=== PATIENT | male | born 1985 | race Caucasian/White ===

== ENCOUNTER 2018-03-27 21:09 | Emergency (ER) | payer OTHER ==
[2018-03-27] MEDS ORDERED: ONDANSETRON 4 MG/2 ML VIAL IVP STA (21:19)
[2018-03-27] MEDS ORDERED: SODIUM CHLORIDE 0.9% 1,000 ML IV STA (21:19)
[2018-03-27] MEDS ORDERED: PANTOPRAZOLE 40 MG VIAL IVP STA (21:28)
[2018-03-27] MEDS ORDERED: FAMOTIDINE 20 MG TABLET PO STA (21:28)
--- NOTE | 2018-03-27 21:38 | ED Physician Documentation ---
History of Present Illness - Stated complaint Stated Complaint: VOMITING - Chief complaint Chief Complaint: Abd Pain - History obtained from History obtained from: Patient - History of Present Illness Timing: Last night Pain level max: 0 Pain level now: 0 Improved by: nothing Worsened by: eating - Additonal information Additional information: 32 year old male with emesis x 2 last night. second episode had blood in it. none since that time. States felt lightheaded today. Still feeling nauseated. no diarrhea. no fevers. No recent travel. no recent abx. Has been around people that have been sick recently with vomiting. Denies any heavy alcohol use. Denies any marijuana use. Nothing makes it better. Worse with eating Review of Systems Ten Systems: 10 systems reviewed and negative Constitutional: denies: Fever, Chills Ears: denies: Ear pain Nose: denies: Rhinorrhea / runny nose, Congestion Respiratory: denies: Cough GI: reports: Nausea, Vomiting. denies: Diarrhea, Hematemesis, Bloody / black stool Skin: denies: Rash Musculoskeletal: denies: Neck pain, Back pain Neurologic: denies: Headache PD PAST MEDICAL HISTORY - Past Medical History Past Medical History: No - Past Surgical History Past Surgical History: No - Present Medications Home Medications: Ambulatory Orders Medication Instructions Recorded Confirmed Esomeprazole Magnesium [Nexium] 20 mg PO DAILY #14 capsule. 03/27/18 Ondansetron Odt [Zofran] 4 mg TL Q6H PRN #10 tablet 03/27/18 - Allergies Allergies/Adverse Reactions: Allergies Allergy/AdvReac Type Severity Reaction Status Date / Time No Known Drug Allergies Allergy Verified 03/27/18 22:05 - Living Situation Living Situation: reports: With family Living Arrangement: reports: At home - Social History Does the pt smoke?: Yes Does the pt drink ETOH?: Yes Does the pt have substance abuse?: No - Family History Family history: reports: Non contributory PD ED PE NORMAL - Vitals Vital signs reviewed: Yes - General General: Alert and oriented X 3, No acute distress, Well developed/nourished - HEENT HEENT: PERRL, Moist mucous membranes - Neck Neck: Supple, no meningeal sign - Cardiac Cardiac: RRR, Strong equal pulses - Respiratory Respiratory: No respiratory distress, Clear bilaterally - Abdomen Abdomen: Soft, Non tender, Non distended - Back Back: No CVA TTP, No spinal TTP - Derm Derm: Warm and dry - Extremities Extremities: No edema - Neuro Neuro: Alert and oriented X 3 - Psych Psych: Normal mood, Normal affect Results - Vitals Vitals: Vital Signs - 24 hr 03/27/18 03/27/18 21:12 22:40 Temperature 36.4 C L 36.8 C Heart Rate 95 69 Respiratory 18 14 Rate Blood Pressure 176/98 H 148/98 H O2 Saturation 100 98 Oxygen O2 Source Room air - Labs Labs: Laboratory Tests 03/27/18 03/27/18 03/27/18 21:30 21:40 21:40 WBC 6.6 RBC 4.52 L Hgb 15.5 Hct 44.2 MCV 97.8 H MCH 34.2 H MCHC 35.0 RDW 12.3 Plt Count 205 MPV 8.1 Neut # (Auto) 4.0 Lymph # (Auto) 1.9 [place] # (Auto) 0.5 Eos # (Auto) 0.2 Baso # (Auto) 0.0 Absolute Nucleated RBC 0.00 Nucleated RBC % 0.0 Sodium 143 Potassium 3.2 L Chloride 104 Carbon Dioxide 31 Anion Gap 8.0 BUN 19 Creatinine 0.9 Estimated GFR (MDRD) 98 Glucose 115 H Calcium 9.4 Total Bilirubin 0.4 AST 98 H ALT 34 Alkaline Phosphatase 44 Total Protein 7.6 Albumin 4.6 Globulin 3.0 Albumin/Globulin Ratio 1.5 Lipase 30 Urine Color YELLOW Urine Clarity CLOUDY Urine pH 7.5 Ur Specific [place] 1.015 Urine Protein NEGATIVE Urine Glucose (UA) NEGATIVE Urine Ketones NEGATIVE Urine Occult Blood NEGATIVE Urine Nitrite NEGATIVE Urine Bilirubin NEGATIVE Urine Urobilinogen 1 (NORMAL) Ur Leukocyte Esterase NEGATIVE Urine RBC None Seen Urine WBC 0-3 Ur Squamous Epith Cells NONE SEEN Amorphous Sediment Marked Urine Bacteria None Seen Ur Microscopic Review INDICATED Urine Culture Comments NOT INDICATED PD MEDICAL DECISION MAKING - ED course Complexity details: reviewed results, re-evaluated patient, considered differential, d/w patient ED course: 32-year-old male with vomiting today. He did have some blood and a second episode of emesis. He is well-appearing, nontoxic. Afebrile. Given Protonix and Pepcid. Tolerating p.o. without difficulty here. No significant lab abnormalities. We will continue supportive care and follow-up with his doctor. Patient counseled regarding signs and symptoms for which I believe and urgent re-evaluation would be necessary. Patient with good understanding of and agreement to plan and is comfortable going home at this time This document was made in part using voice recognition software. While efforts are made to proofread this document, sound alike and grammatical errors may occur. Departure - Departure Disposition: 01 Home, Self Care Clinical Impression: Vomiting Qualifiers: Vomiting type: unspecified Vomiting Intractability: non-intractable Nausea presence: with nausea Qualified Code(s): R11.2 - Nausea with vomiting, unspecified Condition: Good Instructions: ED Nausea Vomiting Follow-Up: MANDO Zhou [Provider Group] - Within 1 week Prescriptions: Esomeprazole Magnesium [Nexium] 20 mg PO DAILY #14 capsule. Ondansetron Odt [Zofran] 4 mg TL Q6H PRN #10 tablet PRN Reason: Nausea / Vomiting Comments: Go home and rest. This should improve over the next 24 hours. Return if you worsen. Your laboratory testing does not show any acute abnormalities tonight. Use the medications as prescribed. Discharge Date/Time: 03/27/18 22:49
[2018-03-27 21:48] LABS: BILIRUBIN,URINE NEGATIVE (NEGATIVE); GLUCOSE, URINE (UA) NEGATIVE (NEGATIVE); KETONES,URINE (UA) NEGATIVE (NEGATIVE); LEUKOCYTE ESTERASE, URINE NEGATIVE (NEGATIVE); NITRITE,URINE NEGATIVE (NEGATIVE); OCCULT BLOOD,URINE NEGATIVE (NEGATIVE); PH,URINE 7.5 PH (5.0-7.5); PROTEIN,URINE NEGATIVE (NEGATIVE); UROBILINOGEN,URINE 1 (NORMAL) E.U./dL (NORMAL)
[2018-03-27 21:54] LABS: CLARITY,URINE CLOUDY (CLEAR)
[2018-03-27 21:56] LABS: BASOPHILS % (AUTO) 0.6 %; EOSINOPHILS # (AUTO) 0.2 10^3/uL (0.0-0.7); HGB - HEMOGLOBIN 15.5 g/dL (14.0-18.0); LYMPHOCYTES # (AUTO) 1.9 10^3/uL (1.5-3.5); LYMPHOCYTES % (AUTO) 28.8 %; MEAN CORPUSCULAR HEMOGLOBIN 34.2 pg (27.0-31.0); MEAN CORPUSCULAR VOLUME 97.8 fL (80.0-94.0); MEAN PLATELET VOLUME 8.1 fL (7.4-11.4); MONOCYTES # (AUTO) 0.5 10^3/uL (0.0-1.0); MONOCYTES % (AUTO) 7.3 %; NEUTROPHILS % (AUTO) 60.3 %; PLT - PLATELET COUNT 205 10^3/uL (130-450); RED BLOOD COUNT 4.52 10^6/uL (4.70-6.10); RED CELL DISTRIBUTION WIDTH 12.3 % (12.0-15.0); WHITE BLOOD COUNT 6.6 x10^3/uL (4.8-10.8)
[2018-03-27 22:02] LABS: AMORPHOUS SEDIMENT,UR Marked /LPF; BACTERIA,URINE None Seen /HPF (None Seen); RBC,URINE None Seen /HPF (0-5); SQUAMOUS EPITHELIAL CELL,UR NONE SEEN (<= Few)
[2018-03-27 22:08] LABS: ALBUMIN 4.6 g/dL (3.2-5.5); ALBUMIN/GLOBULIN RATIO 1.5 (1.0-2.2); BILIRUBIN,TOTAL 0.4 mg/dL (0.2-1.0); CALCIUM 9.4 mg/dL (8.5-10.3); CREATININE 0.9 mg/dL (0.6-1.2); TOTAL PROTEIN 7.6 g/dL (6.7-8.2)
[2018-03-27 22:41] VITALS: BP 148/98
== END 2018-03-27 22:49 | disposition home or self-care (01) ==
LOC: ED 21:09
DX: R11.2 Nausea with vomiting, unspecified (principal)
CPT/HCPCS: 36415; 80053; 81001; 83690; 85025; 96361; 96374; 99283; A9270; 81003; 87086

== ENCOUNTER 2021-01-16 17:15 | Emergency (ER) | payer OTHER ==
--- NOTE | 2021-01-16 18:09 | XRAY Report ---
PROCEDURE: Chest 1 View X-Ray INDICATIONS: Chest Pain TECHNIQUE: One view of the chest was acquired. COMPARISON: None. FINDINGS: Surgical changes and devices: None. Lungs and pleura: No pleural effusions or pneumothorax. Hazy opacity at the left lung base. Mediastinum: Mediastinal contours appear normal. Heart size is at the normal limits. Bones and chest wall: No suspicious bony lesions. Overlying soft tissues appear unremarkable. IMPRESSION: Hazy opacity at the left lung base. This could represent atelectasis or pneumonia. Reviewed by: Francisco Altamirano MD on 01/16/2021 6:08 PM [facility] Approved by: Francisco Altamirano MD on 01/16/2021 6:08 PM PST Station ID: [id number]
[2021-01-16 18:13] LABS: BASOPHILS % (AUTO) 0.4 %; EOSINOPHILS # (AUTO) 0.1 10^3/uL (0.0-0.7); EOSINOPHILS % (AUTO) 0.8 %; HCT - HEMATOCRIT 44.7 % (42.0-52.0); HGB - HEMOGLOBIN 15.6 g/dL (14.0-18.0); LYMPHOCYTES # (AUTO) 1.5 10^3/uL (1.5-3.5); LYMPHOCYTES % (AUTO) 13.1 %; MEAN CORPUSCULAR HGB CONC 34.9 g/dL (32.0-36.0); MEAN CORPUSCULAR VOLUME 94.5 fL (80.0-94.0); MEAN PLATELET VOLUME 9.4 fL (7.4-11.4); MONOCYTES # (AUTO) 0.8 10^3/uL (0.0-1.0); MONOCYTES % (AUTO) 7.3 %; NEUTROPHILS # (AUTO) 8.7 10^3/uL (1.5-6.6); NEUTROPHILS % (AUTO) 78.2 %; PLT - PLATELET COUNT 191 10^3/uL (130-450); RED BLOOD COUNT 4.73 10^6/uL (4.70-6.10); RED CELL DISTRIBUTION WIDTH 11.3 % (12.0-15.0); WHITE BLOOD COUNT 11.1 x10^3/uL (4.8-10.8)
--- NOTE | 2021-01-16 18:19 | ED Physician Documentation ---
PD HPI CHEST PAIN - Stated complaint Stated Complaint: CHEST PX,SOA - Chief complaint Chief Complaint: Cardiac - History obtained from History obtained from: Patient - History of Present Illness Timing - onset: Yesterday (2) Pain level max: 7 Pain level now: 5 Quality: Sharp, Pain. No: Pressure, Tightness, Aching, Tearing, Dull, Stabbing, Throbbing, Indigestion, Like prior ACS Improved by: Rest Worsened by: Inspiration, Movement, Palpation Associated symptoms: No: Shortness of air, Diaphoresis, Nausea, Vomiting, Feeling faint / dizzy, General Weakness, Palpitations, Cough Recently seen: Not recently seen - Additional information Additional information: Patient is a 35-year-old male with left low chest pain for the past 2 days. Described as sharp. Worse with movement, better with rest. No cough. No history of blood clots. Worse with taking a deep breath and moving. Better with rest. Review of Systems Constitutional: denies: Fever, Chills Nose: denies: Rhinorrhea / runny nose, Congestion Cardiac: denies: Palpitations Respiratory: denies: Hemoptysis, Wheezing GI: denies: Abdominal Pain, Vomiting, Diarrhea Skin: denies: Rash Musculoskeletal: denies: Neck pain, Back pain Neurologic: denies: Headache PD PAST MEDICAL HISTORY - Past Medical History Past Medical History: No - Past Surgical History Past Surgical History: No - Present Medications Home Medications: Ambulatory Orders Medication Instructions Recorded Confirmed Azithromycin [Zithromax] 0 mg PO DAILY #6 tablet 01/16/21 Cefpodoxime Proxetil [Vantin] 200 mg PO Q12H #56 tablet 01/16/21 Lisinopril [Zestril] 20 mg PO DAILY 01/16/21 01/16/21 Meloxicam [Mobic] 15 mg PO DAILY PRN #20 tablet 01/16/21 - Allergies Allergies/Adverse Reactions: Allergies Allergy/AdvReac Type Severity Reaction Status Date / Time No Known Drug Allergies Allergy Verified 01/16/21 17:25 - Living Situation Living Arrangement: reports: At home - Social History Does the pt smoke?: Yes Smoking Status: Current every day smoker Does the pt drink ETOH?: Yes Does the pt have substance abuse?: No PD ED PE NORMAL - Vitals Vital signs reviewed: Yes - General General: Alert and oriented X 3, No acute distress, Well developed/nourished - HEENT HEENT: PERRL, Moist mucous membranes - Neck Neck: Supple, no meningeal sign - Cardiac Cardiac: RRR, Strong equal pulses - Respiratory Respiratory: No respiratory distress, Clear bilaterally, Other (TTP L chest wall. approx T8 dermatome.) - Abdomen Abdomen: Soft, Non tender, Non distended - Back Back: No spinal TTP - Derm Derm: Warm and dry, No rash - Extremities Extremities: No edema, No calf tenderness / cord - Neuro Neuro: Alert and oriented X 3 - Psych Psych: Normal mood, Normal affect Results - Vitals Vitals: Vital Signs - 24 hr 01/16/21 01/16/21 01/16/21 17:22 18:23 20:06 Temperature 36.9 C 97.8 C H 37.3 C Heart Rate 107 H 96 88 Respiratory 20 23 16 Rate Blood Pressure 177/110 H 165/114 H 141/68 H O2 Saturation 98 21 L 96 01/16/21 20:11 Temperature 37.2 C Heart Rate 89 Respiratory 16 Rate Blood Pressure 141/68 H O2 Saturation 97 Oxygen O2 Source Room air - EKG (time done) 1806 Rate: Rate (enter#) (91) Rhythm: NSR [place]: Normal Intervals: Normal [place] QRS: Normal Ischemia: ST elevation c/w repol - Labs Labs: Laboratory Tests 01/16/21 01/16/21 01/16/21 18:06 18:06 18:06 WBC 11.1 H RBC 4.73 Hgb 15.6 Hct 44.7 MCV 94.5 H MCH 33.0 H MCHC 34.9 RDW 11.3 L Plt Count 191 MPV 9.4 Neut # (Auto) 8.7 H Lymph # (Auto) 1.5 [place] # (Auto) 0.8 Eos # (Auto) 0.1 Baso # (Auto) 0.0 Absolute Nucleated RBC 0.00 Nucleated RBC % 0.0 D-Dimer 233.5 Sodium 135 Potassium 4.1 Chloride 97 L Carbon Dioxide 28 Anion Gap 10.0 BUN 13 Creatinine 1.1 Estimated GFR (MDRD) 77 L Glucose 115 H Calcium 9.4 Total Bilirubin 1.0 AST 24 ALT 35 Alkaline Phosphatase 48 Troponin I High Sens Total Protein 8.0 Albumin 5.0 Globulin 3.0 Albumin/Globulin Ratio 1.7 Lipase 24 01/16/21 18:06 WBC RBC Hgb Hct MCV MCH MCHC RDW Plt Count MPV Neut # (Auto) Lymph # (Auto) [place] # (Auto) Eos # (Auto) Baso # (Auto) Absolute Nucleated RBC Nucleated RBC % D-Dimer Sodium Potassium Chloride Carbon Dioxide Anion Gap BUN Creatinine Estimated GFR (MDRD) Glucose Calcium Total Bilirubin AST ALT Alkaline Phosphatase Troponin I High Sens 2.9 Total Protein Albumin Globulin Albumin/Globulin Ratio Lipase - Rads (name of study) cxr Radiology: Final report received, EMP read contemporaneously, See rad report (Hazy opacity at the left lung base. This could represent atelectasis or pneumonia. ) CT pulmonary angio chest Radiology: Final report received, EMP read contemporaneously, See rad report PD MEDICAL DECISION MAKING - ED course Complexity details: reviewed results, re-evaluated patient, considered differential, d/w patient ED course: 35-year-old male with left-sided chest pain. Found to have a small left pleural effusion and a few small pulmonary nodules. This appears the likely cause of his pain. No evidence of PE. Unclear etiology of the effusion. Will treat with antibiotics in case this is infectious. We will have him follow-up closely with his doctor for further care. No evidence of acute coronary syndrome, aortic dissection. Patient counseled regarding signs and symptoms for which I believe and urgent re-evaluation would be necessary. Patient with good understanding of and agreement to plan and is comfortable going home at this time This document was made in part using voice recognition software. While efforts are made to proofread this document, sound alike and grammatical errors may occur. IMPRESSION: 1. No pulmonary embolism. 2. Multiple left pleural effusion. Mild atelectasis at the left lower lung. 3. A few small pulmonary nodules measuring 0.4 cm or less. Departure - Departure Disposition: 01 Home, Self Care Clinical Impression: Pleural effusion Pneumonia Qualifiers: Pneumonia type: due to unspecified organism Laterality: left Lung location: lower lobe of lung Qualified Code(s): J18.9 - Pneumonia, unspecified organism Condition: Good Instructions: ED Effusion Pleural, ED Pneumonia Adult Follow-Up: Provider,Other [Primary Care Provider] - Within 1 week Prescriptions: Meloxicam [Mobic] 15 mg PO DAILY PRN #20 tablet PRN Reason: pain Cefpodoxime Proxetil [Vantin] 200 mg PO Q12H #56 tablet Azithromycin [Zithromax] 0 mg PO DAILY #6 tablet Comments: Please take all antibiotics until gone. Return if you worsen. Follow-up with your doctor for further care. It is important that you have repeat imaging after the infection is cleared to ensure resolution. CT Chest: IMPRESSION: 1. No pulmonary embolism. 2. Small left pleural effusion. Mild atelectasis at the left lower lung. 3. A few small pulmonary nodules measuring 0.4 cm or less. Discharge Date/Time: 01/16/21 20:11
[2021-01-16 18:27] LABS: ALBUMIN/GLOBULIN RATIO 1.7 (1.0-2.2); CALCIUM 9.4 mg/dL (8.5-10.3); CREATININE 1.1 mg/dL (0.6-1.2); POTASSIUM 4.1 mmol/L (3.5-5.0)
[2021-01-16] MEDS ORDERED: KETOROLAC 30 MG/ML VIAL IVP STA (18:37)
[2021-01-16] MEDS ORDERED: IOVERSOL 320 100 ML VIAL IVP ONE ×2 (18:42→19:11)
--- NOTE | 2021-01-16 19:24 | CT Report ---
PROCEDURE: ANGIO CHEST W/WO INDICATIONS: LLL opacity CONTRAST: IV CONTRAST: Optiray 320 ml: 80 PO CONTRAST: *NO PO CONTRAST TECHNIQUE: After the administration of intravenous contrast, 2 mm axial images were acquired from the pulmonary apices to the posterior costophrenic angles during the arterial phase. In addition, 1 mm lung kernel and 5 mm soft tissue kernel reconstructions were performed. 3-dimensional coronal oblique maximum int ensity projection (MIP) reformats, 8 mm axial MIP, and 5 mm coronal and sagittal MPR reformats were t hen performed through the thorax. For radiation dose reduction, the following was used: automated exp osure control, adjustment of mA and/or kV according to patient size. COMPARISON: CXR earlier today. FINDINGS: Image quality: Excellent. Pulmonary arteries: Pulmonary arteries are normal in size, and demonstrate no intraluminal filling d efects to suggest central pulmonary embolism. Lungs and pleura: Mild ground glass opacity in the left lower lung. Left lower lobe pulmonary nodule measuring 0.4 cm, (6/202). Left major fissure pulmonary nodule measuring 0.4 cm (6/140). Right major fissure nodule measuring 0.3 cm, (6/125). Small left pleural effusion. No pneumothorax. Central and peripheral airways are patent. Mediastinum: Heart size is normal, without pericardial effusion. No mediastinal or hilar adenopathy . Thoracic aorta is normal in caliber and enhancement. Esophagus is normal in caliber, without hiat al hernia. Bones and chest wall: No suspicious bony lesions. Ribs and thoracic spine appear intact throughout. No axillary or supraclavicular adenopathy. The thyroid is normal in size and there are no incident al findings. Abdomen: Visualized upper abdominal solid organs appear normal in the early arterial phase of enhanc ement. IMPRESSION: 1. No pulmonary embolism. 2. Multiple left pleural effusion. Mild atelectasis at the left lower lung. 3. A few small pulmonary nodules measuring 0.4 cm or less. Reviewed by: Francisco Altamirano MD on 01/16/2021 7:23 PM PST Approved by: Francisco Altamirano MD on 01/16/2021 7:23 PM PST Station ID: [id number]
[2021-01-16] MEDS ORDERED: cefTRIAXone 1 GM VIAL IVP STA (19:45)
[2021-01-16 20:07] VITALS: BP 141/68
== END 2021-01-16 20:11 | disposition home or self-care (01) ==
LOC: ED 17:15
DX: J90 Pleural effusion, not elsewhere classified (principal); J18.9 Pneumonia, unspecified organism; R91.8 Other nonspecific abnormal finding of lung field; F17.200 Nicotine dependence, unspecified, uncomplicated; Z20.822 Contact with and (suspected) exposure to COVID-19
CPT/HCPCS: 36415; 71045; 71275; 80053; 83690; 84484; 85025; 85379; 87635; 93005; 96374; 96375; 99284; Q9967

== ENCOUNTER 2021-04-10 13:20 | Outpatient (CLI) | payer OTHER ==
[2021-04-10 14:30] VITALS: BP 147/110
--- NOTE | 2021-04-10 14:30 | SLEEP CARE CONSULTATION ---
Information from patient questionnaire entered by Heath Anderson MA. I have reviewed and concur with the information entered by Heath Anderson MA. This document represents the service I personally performed and the decisions made by me, Crys Santos ARNP. History of Present Illness Service Date and Time: 04/10/2021 1320 Reason for Visit: New patient Chief Complaint: reports: Insomnia, Unrefreshed sleep, Snoring, Excessive daytime sleepiness, Observed pauses in breathing, Fatigue Date of Onset: AWHILE MORE FREQ IN THE LAST FEW YEARS Usual bedtime: 12:00 - 0400 Time it takes to fall asleep: 30 MINUTES Snores at night: Yes Observed to quit breathing while asleep: Yes Sleeps alone due to snoring: No Number of times waking at night: sometimes for bathroom, not regular Reasons for waking at night: reports: Bathroom Toss, Turn, or Twitch while sleeping: Yes Recalls having dreams: Yes Usually gets out of bed at: 0500 - 0700 Feels refreshed in the morning: No Morning headache: No Sleepy or fatigued during the day: Yes Ever fallen asleep while driving: No Takes day naps: Yes (daily; 2-3 hours, sometimes more) Dreams during day naps: Yes Prior sleep studies: No Additional HPI information: I had the pleasure of seeing DOUG RADER today regarding the possibility of him having a sleep disorder. His current complaints are excessive daytime sleepiness, fatigue, insomnia, observed pauses in breathing, snoring and unrefreshed sleep. He states that he has a hard time sleeping. He has been told that he is snoring loudly and will gasp in his sleep without waking up. He always feels tired, never waking up feeling rested and "feels strung out". He has been told he has pauses in breathing when sleeping too. He states he can only sleep about 5-6 hours. He is also a light sleeper. - Parasomnia Symptoms Ever been unable to move upon waking from sleep: Yes Walks in sleep: No Talks in sleep: No Ever acted out dreams in sleep: No Ever felt weak in the knees when startled or emotional: No Bothered by creepy, crawly, restless sensations in legs: No Problems with memory or concentration: Yes (memory) Subjective Initial [place] Sleepiness Scale score: 15 (2021) Past Medical History Past Medical History: reports: Hypertension Social History The patient's occupation is a [email or web address]. Patient is Single and lives in . Have you smoked in the past 12 months: No Alcohol use: No Caffeine use: No Family History Family history of sleep disordered breathing: No Family Hx Sleep Apnea: Mother: Snoring Allergies and Home Medications Known drug allergies: No Drug allergies reviewed: Yes (NKDA) Home medication list reviewed: Yes (Lisinopril ) Allergy and home medication list: Allergies No Known Drug Allergies Allergy (Verified 01/16/21 17:25) Review of Systems Weight gain over past 5 years: 35-40 Cardiovascular: reports: high blood pressure Gastrointestinal: denies: heartburn Neurological: denies: headaches Psychiatric: denies: anxiety, depression Ear/Nose/Throat: reports: wisdom teeth removed (has bottom wisdom still). denies: tonsillectomy Endocrine: denies: thyroid disease Immunologic: denies: allergies to food or environment Physical Exam Vital signs obtained and entered by: Arias ANDERSON CMA [facility] Blood Pressure: 147/110 (RIGHT, PULSE 63, RESP 14, ) Heart Rate: 71 O2 Saturation: 97 Height: 5 ft 10 in Weight: 170 lb Body Mass Index: 24.3 BMI Classification: Healthy weight Neck circumference: 15.75 (inches) Mouth and throat: narrow oropharynx Soft palate: long Hard palate: normal Uvula: normal Uvula visualization: 50% Mallampati Class II Tongue: enlarged in size with teeth la on lateral edges Tonsils: 2+ Neck: normal w/o lymphadenopathy or thyromegaly Heart: regular rate and rhythm Lungs: clear bilaterally Impression and Plan 1. Suspected Obstructive Sleep Apnea-Hypopnea Syndrome, as suggested by a history of loud and irregular snoring, observed cessation of breath while a sleep, gasping or choking in sleep, unrefreshed sleep, cognitive impairment, and excessive daytime sleepiness. Narrow oropharynx and obesity are common predisposing factors for obstructive sleep apnea-hypopnea syndrome. I recommend proceeding to polysomnography to confirm the diagnosis and to assess severity. If the patient has significant sleep disordered breathing, a manual CPAP titration study will also be performed to find the optimal treatment pressure. I informed the patient of what the sleep studies involve and after some discussion, obtained agreement to proceed. The pathophysiology of obstructive sleep apnea-hypopnea syndrome was discussed with the patient and health risks of cardiovascular and cerebrovascular disease if not treated. AAS brochure for obstructive sleep apnea-hypopnea syndrome given and reviewed. Risks of drowsy driving discussed in detail and patient advised to avoid long distance driving and to pull tab dealer at the first sign of drowsiness. Patient agreed to plan. * Schedule polysomnography +- manual CPAP titration study and return in 1-2 weeks after the study to discuss result and initiate therapy. * Avoid long distance driving or driving when feeling sleepy. * Avoid alcohol, sedative and muscle relaxant around bedtime. * Attempt to lose weight. * Review instructions provided by trained office staff on how to prepare for the sleep study. * Return for follow-up after sleep study completed. Counseling Topics: Weight control Visit Type: In Office Time Spent with Patient (minutes): 31 Provider Statement: I spent 100% of the Face to Face Visit with the patient with greater than 50% spent counseling the patient and coordination of care.
== END 2021-04-10 13:21 | disposition home or self-care (01) ==
LOC: SC 13:20
PROVIDERS: ATTEND Nurse Practitioner Family
DX: R06.83 Snoring (principal); G47.10 Hypersomnia, unspecified; R53.83 Other fatigue; G47.8 Other sleep disorders; R06.81 Apnea, not elsewhere classified; I10 Essential (primary) hypertension
CPT/HCPCS: 99203; 99212

== ENCOUNTER 2021-05-09 20:29 | Outpatient (CLI) | payer OTHER | END 2021-05-09 20:30 | disposition home or self-care (01) | LOC: SC 20:29 | PROVIDERS: ATTEND Nurse Practitioner Family | DX: G47.33 Obstructive sleep apnea (adult) (pediatric) (principal) | CPT/HCPCS: 95810 ==

== ENCOUNTER 2021-05-24 13:17 | Outpatient (CLI) | payer OTHER ==
--- NOTE | 2021-05-24 13:42 | SLEEP CARE CONSULTATION ---
Information from patient questionnaire entered by Heath Ferguson MA. I have reviewed and concur with the information entered by Heath Ferguson MA. This document represents the service I personally performed and the decisions made by , Crys Santos ARNP. History of Present Illness Service Date and Time: 05/24/2021 1317 Initial [place] Sleepiness Scale score: 15 (2021) Current [place] Sleepiness Scale score: 16 (04/2021) Additional HPI information: DOUG RADER returns for follow up and results of the recently performed polysomnography. I explained the pathophysiology behind obstructive sleep apnea. We then spent quite a bit of time discussing different treatment options. For mild obstructive sleep apnea, surgery and oral appliance are alternatives to nasal CPAP therapy but in moderate or severe cases, nasal CPAP is the most effective and reliable treatment. Because apnea is primarily in supine position, then positional management therapy could be effective. Methods discussed such as positioning with pillows to prevent supine sleep. I reviewed the impact of weight changes on sleep apnea and strongly recommended losing weight. After some discussion, the patient opted to go with the nasal CPAP therapy. Nasal autoCPAP set at 4-15 cmH20 will be ordered with rationale explained. A manual titration study will be ordered if unable to find optimal pressure with office adjustments. I explained how CPAP machine works and what to expect when using the machine. Using CPAP every night in order to get used to it was emphasized. Patient advised to put CPAP mask on before getting into bed so as not to fall asleep without CPAP. To assist acclimation to CPAP use, it could also be used for a short time during day while reading or watching TV. The patient was instructed to call the CPAP supplier to discuss any mechanical problem that may occur. If the mask given is uncomfortable or is difficult to keep on through the night even with adjustment, contact the CPAP supplier as many will replace with another mask style if notified before 30 days. If snoring or perceives is not getting enough air or too much air from the machine, notify this office. [facility] patient education PAP tips reviewed and given to patient. Patient counseled not drink alcohol less than 4 hours before bedtime as it can increase snoring and apnea. Patient was cautioned about risks of drowsy driving until sleepiness symptoms resolve. Patient denies drowsy driving. Sleep Study - Results Type of Sleep Study: Polysomnography (F/U POLY 05/09/2021 [facility]) Prior sleep studies: No Polysomnography/Home Sleep Study results: IMPRESSION: The quality of the study is good. The patient had reduced sleep efficiency due to prolonged awakenings after the sleep onset. The sleep architecture was relatively normal considering the first-night effect. Respiratory monitoring showed mild obstructive sleep apnea-hypopnea (AHI = 6.0) associated with oxyhemoglobin desaturation and mild hypoxia (leanne oxygen saturation of 85%). The respiratory events occurred almost exclusively during supine sleep (supine AHI = 10.9; non-supine = 1.00). Snore was moderate to loud in intensity. There was no significant periodic leg movement of sleep. Cardiac rhythm was normal sinus rhythm without significant arrhythmia. No abnormal behavior (parasomnia) observed during the night. Allergies and Home Medications Home medication list reviewed: Yes (no changes) Allergy and home medication list: Allergies No Known Drug Allergies Allergy (Verified 01/16/21 17:25) Review of Systems Review of systems same as previous: Yes (no changes) Physical Exam Vital signs obtained and entered by: IRENE WILSON Blood Pressure: 131/75 (LEFT, PULSE 85, RESP 16,) Cuff size: wrist Heart Rate: 62 O2 Saturation: 97 (PAPER) Height: 5 ft 10 in Weight: 168 lb Body Mass Index: 24.0 BMI Classification: Healthy weight Impression and Plan 1. Obstructive Sleep Apnea-Hypopnea Syndrome, mild, with lowest oxygen saturation of 85%. Obviously this is the cause of the patients symptoms of unrefreshed sleep, and excessive daytime sleepiness. Positive pressure therapy could benefit hypertension. As mentioned above, the patient will be started on nasal autoCPAP therapy with pressure set at 4-15 cmH2O. Compliance guidelines also reviewed. A copy of compliance guidelines will be given for reference at check out. Because the apnea is more severe supine, I instructed to avoid sleeping supine using pillow positioning until able to start CPAP use. * Nasal auto CPAP therapy, pressure at 4-15 cm H2O. * Attempt to lose weight. * Avoid alcohol consumption near bedtime. * Avoid supine sleep until using CPAP. * The patient is again cautioned about driving until sleepiness completely resolves. * Return one month after CPAP obtained. I will assess response to therapy and compliance at that time. Counseling Topics: Sleeping position, Weight loss health impact Visit Type: In Office Time Spent with Patient (minutes): 20 Provider Statement: I spent 100% of the Face to Face Visit with the patient with greater than 50% spent counseling the patient and coordination of care.
[2021-05-24 13:52] VITALS: BP 131/75
== END 2021-05-24 13:18 | disposition home or self-care (01) ==
LOC: SC 13:17
PROVIDERS: ATTEND Nurse Practitioner Family
DX: G47.33 Obstructive sleep apnea (adult) (pediatric) (principal)
CPT/HCPCS: 99212; 99213

== ENCOUNTER 2021-07-19 12:47 | Outpatient (CLI) | payer OTHER ==
[2021-07-19 13:33] VITALS: BP 122/74
--- NOTE | 2021-07-19 13:33 | SLEEP CARE CONSULTATION ---
Information from patient questionnaire entered by Heath Ferguson MA. I have reviewed and concur with the information entered by Heath Ferguson MA. This document represents the service I personally performed and the decisions made by , Crys Santos ARNP. History of Present Illness Service Date and Time: 07/19/2021 1247 Previous diagnosis: Mild, Obstructive Sleep Apnea-Hypopnea Syndrome AHI: 6.0 (in 2021) Reason for follow up: first compliance (SET UP DATE 06/12/21, RESMED, ) Equipment type: CPAP Equipment obtained from: [employer] (got initial supplies) Mask style: Nasal Backup mask available: No (will keep the old mask when replaced) Last cushion change: 1 month Prior sleep studies: No Type of Sleep Study: Polysomnography (F/U POLY 05/09/2021 [facility]) HPI additional information: DOUG RADER was diagnosed to have mild, AHI 6.0, obstructive sleep apnea-hypopnea syndrome and returned today for CPAP therapy first compliance follow-up. Sleep Study - Results Type of Sleep Study: Polysomnography (F/U POLY 05/09/2021 [facility]) Prior sleep studies: No CPAP Compliance Data - Data Reviewed with Patient Average duration of nightly device use: 5 HOURS 8 MINUTES Compliance rate %: 77 (30 days; usage) Current pressure setting (cmH2O): 4-15 (median 5.9, avg 8.4, max 9.7) Average residual AHI: 1.2 Central apnea: .4 Obstructive apnea: .4 Average large leak: 8.6 Subjective Patient concerns: denies: aerophagia, mask discomfort, air blowing in eyes, mask leak noise, condensation in mask/hose, nasal congestion, dry mouth, nose, throat, epistaxis, other Observed to snore while using device: No Current pressure setting perceived as: comfortable On therapy, patient: reports: sleeping better, awakening more refreshed, being more awake and alert during the day, more rested overall. denies: drowsiness while driving Initial [place] Sleepiness Scale score: 15 (2021) Current [place] Sleepiness Scale score: 11 (06/2021) Allergies and Home Medications Home medication list reviewed: Yes (no changes) Allergy and home medication list: Allergies No Known Drug Allergies Allergy (Verified 01/16/21 17:25) Review of Systems Review of systems same as previous: Yes (no changes) Physical Exam Vital signs obtained and entered by: IRENE WILSON Blood Pressure: 122/74 (RESP 18, PULSE 80, RIGHT) Cuff size: wrist Heart Rate: 81 O2 Saturation: 97 (PAPER MASK) Height: 5 ft 10 in Weight: 167 lb (CLOTHES) Body Mass Index: 23.9 BMI Classification: Healthy weight Impression and Plan 1. Obstructive Sleep Apnea-Hypopnea Syndrome, mild, with good treatment compliance and good apnea control. On CPAP therapy, the patient has better sleep quality and is more rested overall. The patients pressure will be changed to autoCPAP 6-9 cmH20 to reflect pressures being used. Patient advised to contact me if pressure change is uncomfortable so that it can be adjusted. Goals for apnea control discussed. Patient denies problems with oral dryness, nasal congestion, epistaxis, skin irritation or aerophagia. Patient's apnea severity and rationale for treatment to reduce apnea, improve sleep quality and reduce cardiovascular and cerebrovascular events was reviewed. I also reviewed the benefit of consistent device use of CPAP for hypertension. * Change auto CPAP pressure to 6-9 cmH2O * Notify me if snoring with mask or feeling that the pressure is too much or too little * Maintain a healthy weight * Call this office if any problems using CPAP * Return for follow up in 1-2 months, or sooner if concerns arise Counseling Topics: Spare mask Visit Type: In Office Time Spent with Patient (minutes): 20 Provider Statement: I spent 100% of the Face to Face Visit with the patient with greater than 50% spent counseling the patient and coordination of care.
== END 2021-07-19 12:48 | disposition home or self-care (01) ==
LOC: SC 12:47
PROVIDERS: ATTEND Nurse Practitioner Family
DX: G47.33 Obstructive sleep apnea (adult) (pediatric) (principal)
CPT/HCPCS: 99212; 99213

== ENCOUNTER 2021-08-30 12:58 | Outpatient (CLI) | payer OTHER ==
--- NOTE | 2021-08-30 13:56 | SLEEP CARE CONSULTATION ---
Information from patient questionnaire entered by Heath Ferguson MA. I have reviewed and concur with the information entered by Heath Ferguson MA. This document represents the service I personally performed and the decisions made by , Crys Santos ARNP. History of Present Illness Service Date and Time: 08/30/2021 1258 Previous diagnosis: Mild, Obstructive Sleep Apnea-Hypopnea Syndrome AHI: 6.0 (in 2021) Reason for follow up: other (6 week f/u, pressure change, resmed, ) Equipment type: CPAP Equipment obtained from: [employer] (needs to get ahold of them for supplies) Mask style: Nasal Backup mask available: No (will keep old mask when replaced) Last cushion change: 3-4 weeks Prior sleep studies: No Type of Sleep Study: Polysomnography (F/U POLY 05/09/2021 [facility]) HPI additional information: DOUG RADER was diagnosed to have mild, AHI 6.0, obstructive sleep apnea-hypopnea syndrome and returned today for CPAP therapy six week with pressure change follow-up. Sleep Study - Results Type of Sleep Study: Polysomnography (F/U POLY 05/09/2021 [facility]) Prior sleep studies: No CPAP Compliance Data - Data Reviewed with Patient Average duration of nightly device use: 5 HOURS 20 MINUTES Compliance rate %: 72 (06/30/21-08/28/21; 60 days; 51/60 days used) Current pressure setting (cmH2O): 6-9 Average residual AHI: 1.1 Central apnea: .5 Obstructive apnea: .3 Hypopnea: .2 Average large leak: 12.9 Subjective Missed days of use due to: reports: travel ([employer]), other ( WORK) Patient concerns: reports: mask leak noise. denies: aerophagia, mask discomfort, air blowing in eyes, condensation in mask/hose, nasal congestion, dry mouth, nose, throat, epistaxis, other Observed to snore while using device: No Current pressure setting perceived as: comfortable On therapy, patient: reports: sleeping better, awakening more refreshed, being more awake and alert during the day, more rested overall. denies: drowsiness while driving Initial [place] Sleepiness Scale score: 15 (2021) Current [place] Sleepiness Scale score: 10 (08/30/2021) Allergies and Home Medications Home medication list reviewed: Yes (no changes) Allergy and home medication list: Allergies No Known Drug Allergies Allergy (Verified 01/16/21 17:25) Review of Systems Review of systems same as previous: Yes (no changes) Physical Exam Vital signs obtained and entered by: IRENE Barnes Blood Pressure: 113/75 (RESP 18, PULSE 82, LEFT) Cuff size: wrist Heart Rate: 80 O2 Saturation: 98 (PAPER MASK) Height: 5 ft 10 in Weight: 164 lb 8 oz (CLOTHES) Body Mass Index: 23.6 BMI Classification: Healthy weight Impression and Plan 1. Obstructive Sleep Apnea-Hypopnea Syndrome, mild, with good treatment compliance and good apnea control. On CPAP therapy, the patient has better sleep quality and is more rested overall. Patient has been getting more mask leak noise. He has not ordered any more supplies and he is using the mask cushion he originally started with. I advised him to call his DME supplier to order some supplies. He was instructed to wash the cushion daily for longevity of the mask and for better mask seal. He voiced understanding. Patient's apnea severity and rationale for treatment to reduce apnea, improve sleep quality and reduce cardiovascular and cerebrovascular events was reviewed. I also reviewed the benefit of consistent device use of CPAP for hypertension. * Continue auto CPAP pressure at 6-9 cmH2O * Notify me if snoring with mask or feeling that the pressure is too much or too little * Maintain a healthy weight * Call this office if any problems using CPAP * Return for follow up in 3 months, or sooner if concerns arise Counseling Topics: Spare mask Visit Type: In Office Time Spent with Patient (minutes): 16 Provider Statement: I spent 100% of the Face to Face Visit with the patient with greater than 50% spent counseling the patient and coordination of care.
[2021-08-30 13:57] VITALS: BP 113/75
== END 2021-08-30 12:59 | disposition home or self-care (01) ==
LOC: SC 12:58
PROVIDERS: ATTEND Nurse Practitioner Family
DX: G47.33 Obstructive sleep apnea (adult) (pediatric) (principal)
CPT/HCPCS: 99212

== ENCOUNTER 2022-01-08 15:54 | Outpatient (CLI) | payer OTHER ==
[2022-01-08 16:47] VITALS: BP 140/90
--- NOTE | 2022-01-08 16:47 | SLEEP CARE CONSULTATION ---
Information from patient questionnaire entered by Jadyn Rico. I have reviewed and concur with the information entered by Jadyn Rico. This document represents the service I personally performed and the decisions made by me, Crys Santos ARNP. History of Present Illness Service Date and Time: 01/08/2022 1554 Previous diagnosis: Mild, Obstructive Sleep Apnea-Hypopnea Syndrome AHI: 6.0 (in 2021) Reason for follow up: three month (F/U PRESSURE CHANGE ) Equipment type: CPAP (RESMED) Equipment obtained from: [employer] (needs to order some supplies) Mask style: Nasal Backup mask available: No (will keep old mask when replaced) Prior sleep studies: No Type of Sleep Study: Polysomnography (F/U POLY 05/09/2021 [facility]) HPI additional information: DOUG RADER was diagnosed to have mild, AHI 6, obstructive sleep apnea-hypopnea syndrome and returned today for CPAP therapy three month with pressure change follow-up. Sleep Study - Results Type of Sleep Study: Polysomnography (F/U POLY 05/09/2021 [facility]) Prior sleep studies: No CPAP Compliance Data - Data Reviewed with Patient Average duration of nightly device use: 5 HRS, 26 MIN Compliance rate %: 83 (10/08/21-01/05/22; 82/90 days used) Current pressure setting (cmH2O): 6-9 Average residual AHI: 1.5 Central apnea: 0.8 Obstructive apnea: 0.4 Subjective Patient concerns: denies: aerophagia, mask discomfort, air blowing in eyes, mask leak noise, condensation in mask/hose, nasal congestion, dry mouth, nose, throat, epistaxis Observed to snore while using device: No Current pressure setting perceived as: comfortable On therapy, patient: reports: sleeping better, more rested overall. denies: drowsiness while driving Initial [place] Sleepiness Scale score: 15 (2021) Current [place] Sleepiness Scale score: 16 (01/08/2022) Allergies and Home Medications Drug allergies reviewed: Yes (NKDA) Home medication list reviewed: Yes (no changes) Review of Systems Review of systems same as previous: Yes (no changes) Physical Exam Vital signs obtained and entered by: JADYN Watkins MA Blood Pressure: 140/90 (left arm) Cuff size: regular Heart Rate: 86 O2 Saturation: 98 Height: 5 ft 10 in Weight: 172 lb 3.2 oz Body Mass Index: 24.7 BMI Classification: Normal Impression and Plan 1. Obstructive Sleep Apnea-Hypopnea Syndrome, mild, with good treatment compliance and good apnea control. On CPAP therapy, the patient has better sleep quality and is more rested overall. Patient has significant improvement of their sleep apnea and are satisfied with current CPAP therapy. Patient denies problems with oral dryness, nasal congestion, epistaxis, skin irritation or aerophagia. Patient's apnea severity and rationale for treatment to reduce apnea, improve sleep quality and reduce cardiovascular and cerebrovascular events was reviewed. I also reviewed the benefit of consistent device use of CPAP for hypertension. * Continue auto CPAP pressure at 6-9 cmH2O * Notify me if snoring with mask or feeling that the pressure is too much or too little * Attempt to lose weight * Call this office if any problems using CPAP * Return for follow up in 6 months, or sooner if concerns arise Counseling Topics: Spare mask, Weight control Visit Type: In Office Time Spent with Patient (minutes): 19 Provider Statement: I spent 100% of the Face to Face Visit with the patient with greater than 50% spent counseling the patient and coordination of care.
== END 2022-01-08 15:55 | disposition home or self-care (01) ==
LOC: SC 15:54
PROVIDERS: ATTEND Nurse Practitioner Family
DX: G47.33 Obstructive sleep apnea (adult) (pediatric) (principal)
CPT/HCPCS: 99212